=== PATIENT | female | born 1975 | race Caucasian/White ===

== ENCOUNTER 2020-02-16 16:16 | Inpatient (IN) | payer MEDICARE, SELFPAY ==
[2020-02-16 16:19] VITALS: BP 109/63; PULSE 79; RESP 20; TEMP 36.7; O2SAT 98; BMI 22.0
[2020-02-16 16:51] LABS: Basophils % 0.4 %; Eosinophils # 0.5 10^3/uL (0.0-0.8); Hematocrit 36.3 % (37.0-47.0); Hemoglobin 11.7 g/dL (11.5-15.3); Lymphocytes # 2.9 10^3/uL (0.8-4.8); Lymphocytes % 38.6 %; Mean Corpuscular HGB Conc 32.2 g/dL (30.0-36.0); Mean Corpuscular Hemoglobin 32.1 pg (28.0-34.0); Mean Corpuscular Volume 99.5 fL (81-99); Mean Platelet Volume 11.3 fL (7.4-10.4); Monocytes # 0.6 10^3/uL (0.2-0.9); Monocytes % 8.3 %; Neutrophils # 3.47 10^3/uL (1.8-7.7); Neutrophils % 46.4 %; Nucleated Red Blood Cells % 0 %; Platelet Count 160 10^3/cmm (130-400); Red Blood Count 3.65 10^6/uL (4.1-5.3); Red Cell Distribution Width 12.9 % (12.1-15.1); White Blood Count 7.5 10^3/uL (4.0-10.0)
[2020-02-16 17:19] LABS: Alanine Aminotransferase 32 U/L (0-33); Albumin Level 4.4 g/dL (3.5-5.2); Alkaline Phosphatase 65 IU/L (35-105); Anion Gap 16.1 (5-19); Aspartate Amino Transferase 29 U/L (0-32); Blood Urea Nitrogen 14 mg/dL (6-20); Calcium 9.9 mg/dL (8.5-10.5); Carbon Dioxide 22 mmol/L (22-29); Chloride 104 mmol/L (98-107); Globulin 2.3 g/dL (1.3-4.6); Glomerular Filtration Rate 77.6 mL/min (90-130); Glucose 101 mg/dL (65-115); Osmolality Calculated 282 mOsm/kg (285-295); Potassium 4.1 mmol/L (3.5-5.1); Sodium 138 mmol/L (136-145); Total Bilirubin 0.2 mg/dL (0.15-1.2); Total Protein 6.7 g/dL (6.6-8.7)
--- NOTE | 2020-02-16 17:19 | W.ED.PSYCH ---
HPI - Psych General: Chief Complaint: Psychiatric Symptoms Stated Complaint: SOB Time Seen by Provider: 02/16/20 16:28 History of Present Illness: HPI Narrative: 45-year-old female comes in complaining of racing thoughts and suicidal ideation that began began after she started BuSpar. She is also having restless legs. MD complaint: suicidal ideation Onset (ago): day(s) Duration: constant History of same: No Relieving factors: none Exacerbating factors: none Context: new medication(s) Associated symptoms: Reports depression and suicidal ideation If self harm: admits thoughts of self harm and has plan Details of plan: Plans to jump in front of traffic to kill herself Review of Systems Const: Denies: fever(s), chills, body aches, change in appetite, fatigue or malaise ENMT: Denies: throat pain, ear or mastoid pain, nasal discharge or nasal congestion Card: Denies: chest pain, edema, dyspnea on exertion or orthopnea Resp: Denies: dyspnea, productive cough or non-productive cough GI: Denies: abdominal pain, nausea, vomiting, hematemesis, coffee ground emesis, diarrhea, constipation, bloating, hematochezia or melena : Denies: flank pain, difficulty voiding, dysuria, urinary frequency or urinary urgency Skin/Breast: Denies: rash or pruritus Psych: Reports: depression and suicidal ideation [facility] ED PFSH: Surgical History (Updated 02/17/20 @ 13:45 by Emil Prado DO) H/O resection of small bowel Uncertain veracity of this surgery H/O: hysterectomy History of appendectomy Hx of cholecystectomy Physical Exam Const: COMMON NORMALS: average body habitus, patient oriented x3 and alert GENERAL APPEARANCE: cooperative, comfortable, well kempt and well developed NUTRITIONAL APPEARANCE: obese ORIENTATION/CONSCIOUSNESS: Yes awake, Yes oriented to person and Yes oriented to place HENMT: COMMON NORMALS: normocephalic and atraumatic HEAD & SCALP: normocephalic and atraumatic Eye: COMMON NORMALS: Equal, round and reactive pupils present, EOMs intact bilaterally, conjunctivae normal and no scleral icterus CONJUNCTIVA: Yes conjunctivae normal PUPIL: Yes Equal, round and reactive pupils present Neck/C-Spine: COMMON NORMALS: full ROM, no lymphadenopathy, supple, no meningeal signs and Thyroid normal THYROID: Thyroid normal and asymmetrical Lymph: LYMPHATIC: no lymphadenopathy noted Resp: COMMON NORMALS: normal respiratory effort, No retractions, No use of accessory muscles and clear to auscultation bilaterally AUSCULTATION: clear to auscultation bilaterally Cardio: COMMON NORMALS: regular rate and regular rhythm RATE: regular rate RHYTHM: regular rhythm HEART SOUNDS: no murmurs GI: COMMON NORMALS: Normal to inspection, nondistended, normoactive bowel sounds present, Soft to palpation and No hepatosplenomegaly present PALPATION: Yes Soft to palpation and Yes No hepatosplenomegaly present : COMMON NORMALS: Yes no CVA tenderness BLADDER/KIDNEY EXAM: Yes no CVA tenderness Back/Pelvis: COMMON NORMALS: no CVA tenderness LUMBAR SPINE/LOWER BACK: Yes normal to inspection Extremity: COMMON NORMALS: no clubbing, cyanosis or edema, no calf tenderness and no pedal edema Neuro: COMMON NORMALS: patient oriented x3 SENSORIUM/ORIENTATION: Yes alert, Yes oriented to person and Yes oriented to place MENINGEAL SIGNS: Yes no meningeal signs Psych: APPEARANCE: Yes well kempt Skin: COMMON NORMALS: no rashes or lesions noted and turgor normal GENERAL SKIN EXAM: no rashes or lesions noted and turgor normal MDM - Psych MDM Narrative: Medical decision making narrative: Labs unremarkable patient placed on 96-hour hold admitted to psych discussed with Dr. Armas Lab Data: Labs: Lab Results 02/16/20 02/16/20 02/16/20 Range/Units 16:44 16:44 16:45 WBC 7.5 (4.0-10.0) 10^3/ uL RBC 3.65 L (4.1-5.3) 10^6/u L Hgb 11.7 (11.5-15.3) g/dL Hct 36.3 L (37.0-47.0) % MCV 99.5 H (81-99) fL MCH 32.1 (28.0-34.0) pg MCHC 32.2 (30.0-36.0) g/dL RDW 12.9 (12.1-15.1) % Plt Count 160 (130-400) 10^3/c mm MPV 11.3 H (7.4-10.4) fL Neut % (Auto) 46.4 % Lymph % (Auto) 38.6 % [place] % (Auto) 8.3 % Eos % (Auto) 6.0 % Baso % (Auto) 0.4 % Neut # (Auto) 3.47 (1.8-7.7) 10^3/u L Lymph # (Auto) 2.9 (0.8-4.8) 10^3/u L [place] # (Auto) 0.6 (0.2-0.9) 10^3/u L Eos # (Auto) 0.5 (0.0-0.8) 10^3/u L Baso # (Auto) 0.0 (0.0-0.1) 10^3/u L Nucleated RBC % (a uto) 0 % Nucleated RBCs # 0.0 /100WBC Sodium 138 (136-145) mmol/L Potassium 4.1 (3.5-5.1) mmol/L Chloride 104 (98-107) mmol/L Carbon Dioxide 22 (22-29) mmol/L Anion Gap 16.1 (5-19) BUN 14 (6-20) mg/dL Creatinine 0.8 (0.5-0.9) mg/dL GFR Calculation 77.6 L (90-130) mL/min Glucose 101 (65-115) mg/dL Calculated Osmolal ity 282 L (285-295) mOsm/k g Calcium 9.9 (8.5-10.5) mg/dL Total Bilirubin 0.2 (0.15-1.2) mg/dL AST 29 (0-32) U/L ALT 32 (0-33) U/L Alkaline Phosphata se 65 (35-105) IU/L Total Protein 6.7 (6.6-8.7) g/dL Albumin 4.4 (3.5-5.2) g/dL Globulin 2.3 (1.3-4.6) g/dL Urine Color Straw (Yellow) Urine Appearance Clear (CLEAR) Urine pH 5 (5-7) Ur Specific Gravit y 1.005 (1.005-1.030) Urine Protein Neg (Negative) Urine Glucose (UA) Norm (Normal) Urine Ketones Negative (Negative) Urine Blood Neg (Negative) Urine Nitrate Negative (Negative) Urine Bilirubin Neg (NEGATIVE) Urine Urobilinogen Norm (Negative) mg/dL Ur Leukocyte Alla ase Negative (Negative) Salicylates < 0.3 L (3-10) mg/dL Urine Opiates Scre en (Negative) ng/mL Acetaminophen < 5.0 L (10-30) ug/mL Ur Barbiturates Sc reen (Negative) ng/mL Ur Phencyclidine S crn (Negative) ng/mL Ur Amphetamines Sc reen (Negative) ng/mL U Benzodiazepines Scrn (Negative) ng/mL Urine Cocaine Scre en (Negative) ng/mL U Marijuana (THC) Screen (Negative) ng/mL Ethyl Alcohol < 10 (0-10) mg/dL 02/16/20 Range/Units 16:45 WBC (4.0-10.0) 10^3/ uL RBC (4.1-5.3) 10^6/u L Hgb (11.5-15.3) g/dL Hct (37.0-47.0) % MCV (81-99) fL MCH (28.0-34.0) pg MCHC (30.0-36.0) g/dL RDW (12.1-15.1) % Plt Count (130-400) 10^3/c mm MPV (7.4-10.4) fL Neut % (Auto) % Lymph % (Auto) % [place] % (Auto) % Eos % (Auto) % Baso % (Auto) % Neut # (Auto) (1.8-7.7) 10^3/u L Lymph # (Auto) (0.8-4.8) 10^3/u L [place] # (Auto) (0.2-0.9) 10^3/u L Eos # (Auto) (0.0-0.8) 10^3/u L Baso # (Auto) (0.0-0.1) 10^3/u L Nucleated RBC % (a uto) % Nucleated RBCs # /100WBC Sodium (136-145) mmol/L Potassium (3.5-5.1) mmol/L Chloride (98-107) mmol/L Carbon Dioxide (22-29) mmol/L Anion Gap (5-19) BUN (6-20) mg/dL Creatinine (0.5-0.9) mg/dL GFR Calculation (90-130) mL/min Glucose (65-115) mg/dL Calculated Osmolal ity (285-295) mOsm/k g Calcium (8.5-10.5) mg/dL Total Bilirubin (0.15-1.2) mg/dL AST (0-32) U/L ALT (0-33) U/L Alkaline Phosphata se (35-105) IU/L Total Protein (6.6-8.7) g/dL Albumin (3.5-5.2) g/dL Globulin (1.3-4.6) g/dL Urine Color (Yellow) Urine Appearance (CLEAR) Urine pH (5-7) Ur Specific Gravit y (1.005-1.030) Urine Protein (Negative) Urine Glucose (UA) (Normal) Urine Ketones (Negative) Urine Blood (Negative) Urine Nitrate (Negative) Urine Bilirubin (NEGATIVE) Urine Urobilinogen (Negative) mg/dL Ur Leukocyte Alla ase (Negative) Salicylates (3-10) mg/dL Urine Opiates Scre en Negative (Negative) ng/mL Acetaminophen (10-30) ug/mL Ur Barbiturates Sc reen Negative (Negative) ng/mL Ur Phencyclidine S crn Negative (Negative) ng/mL Ur Amphetamines Sc reen Negative (Negative) ng/mL U Benzodiazepines Scrn Negative (Negative) ng/mL Urine Cocaine Scre en Negative (Negative) ng/mL U Marijuana (THC) Screen Negative (Negative) ng/mL Ethyl Alcohol (0-10) mg/dL Discharge Plan Discharge Patient Disposition: Admitted As Inpatient Admit Provider: Yosvany Armas Clinical Impression: Suicidal ideation, Acute psychosis, Depression Condition: Stable Interventions: ED Discharge Assessment Last Done: 02/16/20 20:08 ED Charges Last Done: 02/16/20 20:08 Discharge Date/Time: 02/16/20 20:09 Coding Level of Care Code ED [facility] for Cuate Balderrama
[2020-02-16 17:40] LABS: Acetaminophen < 5.0 ug/mL (10-30); Alcohol Level < 10 mg/dL (0-10); Salicylate < 0.3 mg/dL (3-10)
[2020-02-16] MEDS: risperiDONE 1 mg Tablet PO (18:14)
[2020-02-16] MEDS: acetaminophen 500 mg Tablet 1000 MG PO (18:29)
[2020-02-16 18:34] LABS: Add Urine Microscopic? NO
[2020-02-16 18:42] LABS: Bilirubin Urine Neg (NEGATIVE); Blood Urine Neg (Negative); Glucose Urine UA Norm (Normal); Ketones Urine Negative (Negative); Leukocyte Esterase Urine Negative (Negative); Nitrate Urine Negative (Negative); Protein Urine Neg (Negative); Specific Gravity, Urine 1.005 (1.005-1.030); Urine Appearance Clear (CLEAR); Urine Color Straw (Yellow); Urobilinogen Urine Norm (Negative); pH Urine 5 (5-7)
[2020-02-16 18:50] LABS: Amphetamines Screen Urine Negative (Negative); Barbiturates Screen Urine Negative (Negative); Benzodiazepines Screen Urine Negative (Negative); Cocaine Screen Urine Negative (Negative); Opiate Screen Urine Negative (Negative); PCP Screen Urine Negative (Negative); THC Screen Urine Negative (Negative)
[2020-02-16 20:08] VITALS: PULSE 78; RESP 18; O2SAT 96
[2020-02-16 20:51] VITALS: BP 117/76; PULSE 75; RESP 15; TEMP 37; O2SAT 98
[2020-02-16] MEDS: hyDROXYzine 25 mg Capsule 50 MG PO (21:44)
[2020-02-16] MEDS: trazodone 50 mg Tablet PO (21:45)
[2020-02-16 21:52] VITALS: BP 117/76; PULSE 75; RESP 15; TEMP 37; O2SAT 98
[2020-02-17] MEDS: acetaminophen 325 mg Tablet 650 MG PO ×3 (03:23→15:15)
[2020-02-17] MEDS: hyDROXYzine 25 mg Capsule 50 MG PO ×2 (03:26→08:10)
--- NOTE | 2020-02-17 03:42 | PC.NURSE ---
At HS, pt was given prn meds trazodone and vistaril per request. And at 0323, pt was given tylenol per request for a headache.
[2020-02-17] MEDS: nicotine 2 mg Gum BUCCAL ×3 (03:58→09:07)
[2020-02-17 06:00] VITALS: BP 113/83; PULSE 63; RESP 13; TEMP 36.9; O2SAT 98
[2020-02-17] MEDS: methocarbamol 500 mg Tablet PO (08:09)
[2020-02-17] MEDS: escitalopram 10 mg Tablet 20 MG PO (08:09)
[2020-02-17] MEDS: ziprasidone hcl 60 mg Capsule PO (08:09)
[2020-02-17] MEDS: amoxicillin 500 mg Capsule PO ×3 (08:09→21:34)
[2020-02-17] MEDS: pantoprazole DR 40 mg Tablet PO (08:09)
[2020-02-17] MEDS: BuSPIRONE 10 mg Tablet PO ×3 (08:10→21:35)
[2020-02-17] MEDS: gabapentin 400 mg Capsule 800 MG PO (08:10)
[2020-02-17] MEDS: propranolol 20 mg Tablet 10 MG PO (08:11)
[2020-02-17] MEDS: albuterol 8 gm MDI INHALATION (08:17)
[2020-02-17 08:21] VITALS: PULSE 89; RESP 16; O2SAT 96
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
[2020-02-17] MEDS: nicotine 21 mg Patch 1 PATCH TRANSDERMA (11:40)
[2020-02-17 14:00] VITALS: BP 114/71; PULSE 66; RESP 20; TEMP 36.8; O2SAT 98
[2020-02-17 18:42] VITALS: PULSE 72; RESP 18; O2SAT 98
[2020-02-17 20:35] VITALS: BP 113/60; PULSE 73; RESP 16; TEMP 36.5; O2SAT 97
[2020-02-17] MEDS: trazodone 100 mg Tablet PO (21:35)
[2020-02-18] MEDS: OLANZapine 5 mg ODT PO (01:28)
[2020-02-18] MEDS: haloperidol 5 mg Tablet PO (02:59)
[2020-02-18 03:30] VITALS: PULSE 70; RESP 18; O2SAT 99
[2020-02-18] MEDS: albuterol 8 gm MDI INHALATION ×2 (03:30→08:46)
[2020-02-18 03:56] LABS: Glucose Point of Care 94 mg/dL (70-110)
[2020-02-18 06:00] VITALS: BP 118/70; PULSE 77; RESP 18; TEMP 36.4; O2SAT 99
[2020-02-18 08:46] VITALS: PULSE 90; RESP 18; O2SAT 97
[2020-02-18] MEDS: escitalopram 10 mg Tablet 20 MG PO (08:55)
[2020-02-18] MEDS: amoxicillin 500 mg Capsule PO ×3 (08:55→19:59)
[2020-02-18] MEDS: ziprasidone hcl 60 mg Capsule PO (08:55)
[2020-02-18] MEDS: propranolol 20 mg Tablet 10 MG PO (08:56)
[2020-02-18] MEDS: hyDROXYzine 25 mg Capsule 50 MG PO (08:56)
[2020-02-18] MEDS: pantoprazole DR 40 mg Tablet PO (08:56)
[2020-02-18] MEDS: gabapentin 400 mg Capsule 800 MG PO (08:56)
[2020-02-18] MEDS: methocarbamol 500 mg Tablet PO (08:56)
[2020-02-18] MEDS: BuSPIRONE 10 mg Tablet PO ×3 (08:57→19:59)
[2020-02-18] MEDS: nicotine 2 mg Gum BUCCAL (08:59)
[2020-02-18] MEDS: acetaminophen 325 mg Tablet 650 MG PO (11:04)
--- NOTE | 2020-02-18 13:08 | P.PN_ITS ---
Subjective NPU Subjective: Interval history: Marcella presents today reporting that she is doing better the further out she gets from the Wellbutrin. But she was worried she was not going to have anything for her anxiety in the afternoon. We discussed the fact that the dosing she had of the BuSpar did not make a lot of sense, as it is generally a two to three times a day medication, so I increased it to 10 mg tid, which made her feel a lot more comfortable. The other medications were started, and she seemed to be catching up on sleep during the day. She did not attend group but reported she was feeling somewhat better. Mental Status Exam MSE Comments: This is a well-nourished, well-developed, white female, with adequate dress, grooming, and eye contact. No abnormal movements. Cooperative with exam in no acute distress. Speech was normal rate and volume. Mood described as alright; affect congruent. She endorsed resolving paranoia but there were no delusions noted. Thought content: patient denied any suicidal or homicidal ideation. She denied visual hallucinations but endorses auditory h allucinations. Attention, concentration, and memory appear intact but were not formally tested. She is alert and oriented times three. Insight and judgment are improving. Vitals/I&O/Wt Last Vital Signs Temp 98.4 F 02/18/20 20:51 Pulse 62 02/18/20 20:51 Resp 17 02/18/20 20:51 BP 117/73 02/18/20 20:51 Pulse Ox 96 02/18/20 20:51 Data NPU : 02/16/20 16:44 02/16/20 16:44 A&P Additional A&P Information (1) Suicidal ideation: (2) Depression: (3) Substance abuse: (4) Borderline personality disorder: This is a 45 year old, white female, with depressive disorder, unspecified, anxiety disorder, unspecified, mood disorder, unspecified, borderline personality disorder, and report of high functioning Asperger by history, which she must mean high functioning autism or Asperger, but anyway she called it ?high functioning Asperger?s,? who presents reporting that she got some kind of mood dysregulation that seemed to be created by erroneously taking Bupropion, who presents willing to get her medications stabilized/adjusted. Continue current medication. Continue q 15 min checks for safety Encourage individual, group, and mileu therapy. Explore current addiction issues. Involuntary Hold Information 96 Hour Hold: 96 Hour Involuntary Admission: Yes 96 Hour Hold Ending Date: 02/16/20 96 Hour Hold Ending Time: 18:10 Attestations NPU Medical Necessity Statement*: Inpatient hospitalization is medically necessary, and the clinically appropriate intervention at this time. We will mo nitor medications and make changes as indicated. She will be in the hospital for over two midnights. Likely length of stay 2-4 days. Coding Level of Care Code Acute Sales Support Administrator for Cuate Balderrama
[2020-02-18 14:00] VITALS: BP 104/76; PULSE 71; RESP 18; TEMP 36.9; O2SAT 98
[2020-02-18] MEDS: trazodone 100 mg Tablet PO (19:59)
[2020-02-18 20:40] VITALS: PULSE 76; RESP 20; O2SAT 98
[2020-02-18 20:51] VITALS: BP 117/73; PULSE 62; RESP 17; TEMP 36.9; O2SAT 96
--- NOTE | 2020-02-18 22:38 | PC.NURSE ---
Addendum entered by Alla Espinosa LPN 02/18/20 22:43: previous entry entered in error. pt was given PRN meds Haldol, and Ibuprofen as well as scheduled Trazodone. Original Note: Pt given PRN meds Zyprexa, Trazodone and Ibuprofen per request.
[2020-02-19] MEDS: haloperidol 5 mg Tablet PO (02:01)
[2020-02-19] MEDS: nicotine 2 mg Gum BUCCAL ×3 (03:40→17:48)
[2020-02-19] MEDS: OLANZapine 5 mg ODT PO (03:41)
[2020-02-19 06:00] VITALS: BP 110/71; PULSE 76; RESP 14; TEMP 37.1; O2SAT 98
[2020-02-19] MEDS: propranolol 20 mg Tablet 10 MG PO (08:04)
[2020-02-19] MEDS: BuSPIRONE 10 mg Tablet PO ×3 (08:04→20:59)
[2020-02-19] MEDS: amoxicillin 500 mg Capsule PO ×3 (08:04→20:59)
[2020-02-19] MEDS: hyDROXYzine 25 mg Capsule 50 MG PO ×2 (08:04→16:57)
[2020-02-19] MEDS: gabapentin 400 mg Capsule 800 MG PO (08:05)
[2020-02-19] MEDS: pantoprazole DR 40 mg Tablet PO (08:05)
[2020-02-19] MEDS: ziprasidone hcl 60 mg Capsule PO ×2 (08:05→21:00)
[2020-02-19] MEDS: escitalopram 10 mg Tablet 20 MG PO (08:06)
[2020-02-19] MEDS: methocarbamol 500 mg Tablet PO (08:28)
[2020-02-19] MEDS: acetaminophen 325 mg Tablet 650 MG PO ×2 (09:13→16:47)
--- NOTE | 2020-02-19 09:23 | PC.NURSE ---
PRN Tylenol given for back pain that is burning and rated a 7 on a 1-10 pain scale. Patient states that she would like to see a social service agency director today
[2020-02-19] MEDS: nicotine 21 mg Patch 1 PATCH TRANSDERMA (09:44)
--- NOTE | 2020-02-19 11:03 | PM.NPN ---
Subjective NPU Subjective: Interval history: Marcella presents today seeming to be less irritable and much more engageable, still having irritability and seemingly low frustration tolerance, but was working collaboratively with social work team to find a discharge option. It is likely going to be a senior living. We discussed the risks, benefits, and alternatives of maintaining her on the current medications with a likely plan for discharge tomorrow. She understood and agreed to proceed as is documented in this note. She reports she is not having the hallucinations or racing thoughts like she was before, and she is adjusting to the Buspar. Mental Status Exam MSE Comments: This is a well-nourished, well-developed, white female, with adequate dress, grooming, and eye contact. No abnormal movements. Cooperative with exam in no acute distress. Speech was normal rate and volume. Mood described as getting better; affect congruent. No delusions were reported or noted. Thought content: patient denied any suicidal or homicidal ideation. She denied any auditory or visual hallucinations. Attention, concentration, and memory appear intact but were not formally tested. She is alert and oriented times three. Insight and judgment are fair and improving. Vitals/I&O/Wt Last Vital Signs Temp 97.2 F L 02/19/20 20:18 Pulse 77 02/19/20 20:18 Resp 13 02/19/20 20:18 BP 107/57 02/19/20 20:18 Pulse Ox 95 02/19/20 20:18 Data NPU : 02/16/20 16:44 02/16/20 16:44 A&P Additional A&P Information (1) Suicidal ideation: (2) Depression: (3) Substance abuse: (4) Borderline personality disorder: This is a 45 year old, white female, with depressive disorder, unspecified, anxiety disorder, unspecified, mood disorder, unspecified, borderline personality disorder, and report of high functioning Asperger by history, which she must mean high functioning autism or Asperger, but anyway she called it ?high functioning Asperger?s,? who presents reporting that she got some kind of mood dysregulation that seemed to be created by erroneously taking Bupropion, who presents willing to get her medications stabilized/adjusted. Continue current medication. We will switch the Geodon to evening dosing and add a 20 mg dose in the morning. Continue q 15 min checks for safety Encourage individual, group, and mileu therapy. Explore current addiction issues. Involuntary Hold Information 96 Hour Hold: 96 Hour Involuntary Admission: Yes 96 Hour Hold Ending Date: 02/16/20 96 Hour Hold Ending Time: 18:10 Attestations NPU Medical Necessity Statement*: Inpatient hospitalization is medically necessary, and the clinically appropriate intervention at this time. We will monitor medications and make changes as indicated. Likely length of stay 1-2 days. 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
--- NOTE | 2020-02-19 12:25 | PC.RESP ---
SMOKING CESSATION INFORMATION SENT TO PATIENT.
[2020-02-19 14:00] VITALS: BP 107/64; PULSE 72; RESP 20; TEMP 36.6; O2SAT 97
--- NOTE | 2020-02-19 16:57 | PC.NURSE ---
PRN VISTARIL 50 MG GIVEN PO PER PT C/O STATED ANXIETY
[2020-02-19 18:48] VITALS: PULSE 78; RESP 18; O2SAT 98
[2020-02-19] MEDS: albuterol 8 gm MDI INHALATION (18:50)
[2020-02-19 20:18] VITALS: BP 107/57; PULSE 77; RESP 13; TEMP 36.2; O2SAT 95
[2020-02-19] MEDS: trazodone 100 mg Tablet PO (20:59)
[2020-02-20] MEDS: nicotine 2 mg Gum BUCCAL ×2 (05:52→13:10)
[2020-02-20 06:00] VITALS: BP 119/76; PULSE 83; PULSE 87; RESP 16; RESP 18; TEMP 36.9; O2SAT 96; O2SAT 98
[2020-02-20] MEDS: albuterol 8 gm MDI INHALATION (06:00)
[2020-02-20 06:05] VITALS: PULSE 88
[2020-02-20] MEDS: BuSPIRONE 10 mg Tablet PO (08:15)
[2020-02-20] MEDS: pantoprazole DR 40 mg Tablet PO (08:15)
[2020-02-20] MEDS: amoxicillin 500 mg Capsule PO (08:15)
[2020-02-20] MEDS: hyDROXYzine 25 mg Capsule 50 MG PO (08:16)
[2020-02-20] MEDS: methocarbamol 500 mg Tablet PO (08:16)
[2020-02-20] MEDS: escitalopram 10 mg Tablet 20 MG PO (08:16)
[2020-02-20] MEDS: gabapentin 400 mg Capsule 800 MG PO (08:16)
[2020-02-20] MEDS: propranolol 20 mg Tablet 10 MG PO (08:17)
[2020-02-20] MEDS: acetaminophen 325 mg Tablet 650 MG PO (09:13)
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
[2020-02-20 12:13] VITALS: BP 125/64; PULSE 82; RESP 18; TEMP 36.9; O2SAT 95
[2020-02-20 12:23] VITALS: BP 125/64; PULSE 82; RESP 18; TEMP 36.9; O2SAT 95
[2020-02-20] MEDS: ziprasidone hcl 20 mg Capsule PO (12:48)
--- NOTE | 2020-02-20 13:40 | PC.SOCIAL ---
Important Medicare Message Reviewed page 1 and 2 of Important Medicare Message with the patient. Verbalized understanding and signed page 2.
== END 2020-02-20 14:07 | disposition home or self-care (01) | DRG 897 ==
LOC: ER 16:55 → NP 19:12
PROVIDERS: Admitting Provider Psychiatry & Neurology Psychiatry; Emergency Provider Family Medicine; Visit Provider Psychiatry & Neurology Psychiatry
DX: F11.129 Opioid abuse with intoxication, unspecified (principal); R45.851 Suicidal ideations; F60.3 Borderline personality disorder; F32.9 Major depressive disorder, single episode, unspecified; F17.210 Nicotine dependence, cigarettes, uncomplicated; Z59.0 Homelessness; I10 Essential (primary) hypertension
CPT/HCPCS: 12345; 36415; 36416; 80053; 80306; 80307; 81003; 82962; 85025; 94640; 99284; J3535

== ENCOUNTER → 2023-06-28 10:29 | Outpatient (BNVA) | payer MEDICARE, SELFPAY | PROVIDERS: PCP Nurse Practitioner Family; Visit Provider Internal Medicine Rheumatology | DX: Z79.899 Other long term (current) drug therapy (principal); M19.90 Unspecified osteoarthritis, unspecified site; M62.81 Muscle weakness (generalized); R76.8 Other specified abnormal immunological findings in serum | CPT/HCPCS: 99204 ==

== ENCOUNTER → 2024-01-28 13:28 | Outpatient (BNVA) | payer MEDICARE, SELFPAY | PROVIDERS: PCP Nurse Practitioner Family; Visit Provider Internal Medicine Rheumatology | DX: M19.90 Unspecified osteoarthritis, unspecified site (principal); M62.81 Muscle weakness (generalized); R76.8 Other specified abnormal immunological findings in serum; Z87.2 Personal history of diseases of the skin and subcutaneous tissue; Z11.1 Encounter for screening for respiratory tuberculosis; Z11.59 Encounter for screening for other viral diseases; R53.82 Chronic fatigue, unspecified | CPT/HCPCS: 36415; 80076; 82085; 82550; 82565; 85025; 85651; 86140; 86160; 86162; 86235; 86255; 86376; 99214 ==

== ENCOUNTER → 2024-02-12 14:45 | Outpatient (BNVA) | payer MEDICARE, SELFPAY | PROVIDERS: PCP Nurse Practitioner Family; Visit Provider Nurse Practitioner Family | DX: L40.0 Psoriasis vulgaris (principal); L81.4 Other melanin hyperpigmentation; L57.8 Other skin changes due to chronic exposure to nonionizing radiation; D22.4 Melanocytic nevi of scalp and neck | CPT/HCPCS: 99204 ==

== ENCOUNTER → 2024-06-10 14:05 | Outpatient (BNVA) | payer MEDICARE, SELFPAY | PROVIDERS: PCP Nurse Practitioner Family; Visit Provider Internal Medicine Rheumatology | DX: R76.8 Other specified abnormal immunological findings in serum (principal); M19.90 Unspecified osteoarthritis, unspecified site; Z79.899 Other long term (current) drug therapy; M62.81 Muscle weakness (generalized); R21 Rash and other nonspecific skin eruption; L40.52 Psoriatic arthritis mutilans; L40.0 Psoriasis vulgaris | CPT/HCPCS: 99214 ==

== ENCOUNTER → 2024-07-29 13:45 | Outpatient (BNVA) | payer MEDICARE, SELFPAY | PROVIDERS: PCP Nurse Practitioner Family; Visit Provider Nurse Practitioner Family | DX: L40.0 Psoriasis vulgaris (principal); L81.4 Other melanin hyperpigmentation; L57.8 Other skin changes due to chronic exposure to nonionizing radiation; D22.4 Melanocytic nevi of scalp and neck | CPT/HCPCS: 99214 ==

== ENCOUNTER → 2024-08-05 12:19 | Outpatient (BNVA) | payer MEDICARE, SELFPAY | PROVIDERS: PCP Nurse Practitioner Family; Referring Provider Internal Medicine Rheumatology; Visit Provider Psychiatry & Neurology Neurology | DX: M62.81 Muscle weakness (generalized) (principal) | CPT/HCPCS: 95911; 95912 ==

== ENCOUNTER → 2024-10-07 14:11 | Outpatient (BNVA) | payer MEDICARE, SELFPAY | PROVIDERS: PCP Nurse Practitioner Family; Visit Provider Internal Medicine Rheumatology | DX: M19.90 Unspecified osteoarthritis, unspecified site (principal); M62.81 Muscle weakness (generalized); R76.8 Other specified abnormal immunological findings in serum; R21 Rash and other nonspecific skin eruption; Z79.899 Other long term (current) drug therapy | CPT/HCPCS: 99214 ==

== ENCOUNTER → 2025-02-03 12:54 | Outpatient (BNVA) | payer MEDICARE, SELFPAY | PROVIDERS: PCP Nurse Practitioner Family; Visit Provider Internal Medicine Rheumatology | DX: M19.90 Unspecified osteoarthritis, unspecified site (principal); M62.81 Muscle weakness (generalized); R76.8 Other specified abnormal immunological findings in serum; R21 Rash and other nonspecific skin eruption; Z79.899 Other long term (current) drug therapy | CPT/HCPCS: 99214 ==

== ENCOUNTER → 2025-06-25 10:36 | Outpatient (BNVA) | payer MEDICARE, SELFPAY | PROVIDERS: PCP Nurse Practitioner Family; Visit Provider Internal Medicine Rheumatology | DX: M13.80 Other specified arthritis, unspecified site (principal); M62.81 Muscle weakness (generalized); R76.89 Other specified abnormal immunological findings in serum; R21 Rash and other nonspecific skin eruption; Z79.899 Other long term (current) drug therapy; R10.20 Pelvic and perineal pain unspecified side; L40.0 Psoriasis vulgaris; R53.82 Chronic fatigue, unspecified; M51.370 Other intervertebral disc degeneration, lumbosacral region with discogenic back pain only | CPT/HCPCS: 36415; 72100; 72170; 85025; 85651; 99214 ==

== ENCOUNTER → 2025-07-08 10:37 | Outpatient (BNVA) | payer MEDICARE, SELFPAY | PROVIDERS: PCP Nurse Practitioner Family; Referring Provider Internal Medicine Rheumatology; Visit Provider Nurse Practitioner Family | DX: M54.42 Lumbago with sciatica, left side (principal); M54.41 Lumbago with sciatica, right side; G89.29 Other chronic pain | CPT/HCPCS: 99214 ==